=== PATIENT | female | born 1965 | race Caucasian/White ===

== ENCOUNTER 2019-11-06 10:01 | Inpatient (IN) | payer OTHER ==
[~2019-11-06] VITALS: Ht 170.2 cm; Wt 141.6 kg
--- NOTE | 2019-11-06 10:18 | NUR ---
PT BIB EMS FOR GENERALIZED WEAKNESS, NVD, ABD PAIN, AND SOB ON EXCERTION. PT HAS HX OF CANCER. DENIES URINARY SYMPTOM OR DARK STOOL. EKG COMPELTE. PT RESTING IN GURNEY CONNECTED TO MONITORING EQUIPMENT. BLANKET PROVIDED. PT RECEIVED 4MG ZOFRAN OTD RACKMAN
[2019-11-06] MEDS ORDERED: SODIUM CHLORIDE FLUSH 10ML SYR IVF ONE (10:30)
[2019-11-06] MEDS ORDERED: FAMOTIDINE 20 MG/2 ML IV ONE (10:30)
[2019-11-06] MEDS ORDERED: ONDANSETRON 2MG/ML, 2ML IVPush ONE (10:30)
[2019-11-06] MEDS ORDERED: FAMOTIDINE 20 MG/2 ML ONE (10:37)
[2019-11-06] MEDS ORDERED: ONDANSETRON 2MG/ML, 2ML ONE (10:37)
--- NOTE | 2019-11-06 10:48 | NUR ---
ASSISTED AMBULATION TO BATHROOM, URINE SAMPLE OBTAINED. MEDICATED ORDERED. PT RESTING IN BED.
[2019-11-06 10:51] LABS: BASOPHILS # (AUTO) 0.01 x10^3/uL (0-0.1); BASOPHILS % (AUTO) 0 % (0-1); EOSINOPHILS # (AUTO) 0.01 x10^3/uL (0-0.4); EOSINOPHILS % (AUTO) 0 % (1-7); LYMPHOCYTES # (AUTO) 0.33 x10^3/uL (1-3.4); LYMPHOCYTES % (AUTO) 4 % (22-44); MD NO; MEAN CORPUSCULAR HEMOGLOBIN 25.9 pg (27.0-34.8); MEAN CORPUSCULAR HGB CONC 31.6 g/dL (32.4-35.8); MEAN CORPUSCULAR VOLUME 81.9 fL (80-100); MEAN PLATELET VOLUME 7.3 fL (7.4-10.4); MONOCYTES # (AUTO) 0.26 x10^3/uL (0.2-0.8); MONOCYTES % (AUTO) 3 % (2-9); NEUTROPHILS # (AUTO) 8.35 x10^3/uL (1.8-6.8); NEUTROPHILS % (AUTO) 93 % (42-75); PLATELET COUNT 297 x10^3/uL (130-400); RED BLOOD COUNT 5.36 x10^6/uL (3.82-5.3); RED CELL DISTRIBUTION WIDTH 15.5 % (9.6-15.2)
[2019-11-06 11:01] LABS: ALANINE AMINOTRANSFERASE 40 U/L (12-78); ALBUMIN 3.1 g/dL (3.4-5.0); ANION GAP 5 mmol/L (5-15); CALCIUM 8.6 mg/dL (8.5-10.1); CHLORIDE 109 mmol/L (98-107); CREATININE 0.94 mg/dL (0.55-1.02)
[2019-11-06 11:01] LABS: MICROSCOPIC INDICATED
[2019-11-06 11:03] LABS: ALKALINE PHOSPHATASE 247 U/L (45-117); BILIRUBIN,TOTAL 0.7 mg/dL (0.2-1.0); TOTAL PROTEIN 7.1 g/dL (6.4-8.2)
[2019-11-06] MEDS ORDERED: SODIUM CHLORIDE 0.9% 1,000ML IVBOLUS ONE ×2 (11:30→13:00)
[2019-11-06] MEDS ORDERED: hydrALAzine 20 MG/ML, 1ML IVPush PRN (14:30)
[2019-11-06] MEDS ORDERED: ONDANSETRON ODT 4 MG PO PRN (14:30)
[2019-11-06] MEDS ORDERED: POLYETHYLENE GLYCOL 17 GM PACKET PO PRN (14:30)
[2019-11-06] MEDS: ENOXAPARIN 40 MG/0.4 ML SQ SCH (14:30)
[2019-11-06] MEDS ORDERED: SENNA/DOCUSATE TABLET PO PRN (14:30)
[2019-11-06 14:40] LABS: FREE T4 (FREE THYROXINE) 1.16 ng/dL (0.76-1.46)
[2019-11-06 15:46] VITALS: BP 145/95
[2019-11-06] MEDS: LACTATED RINGERS 1,000 ML IV SCH ×2 (15:54→21:35)
[2019-11-06] MEDS: HYDROmorphone 2 MG/ML, 1ML IVPush PRN ×3 (15:55→23:42)
[2019-11-06 18:44] VITALS: BP 123/68
[2019-11-06] MEDS: PROMETHAZINE 25 MG/ML, 1ML IM PRN (20:01)
[2019-11-07 00:02] VITALS: BP 156/87
[2019-11-07] MEDS: PROMETHAZINE 25 MG/ML, 1ML IM PRN ×2 (00:21→04:46)
[2019-11-07] MEDS: LACTATED RINGERS 1,000 ML IV SCH ×3 (04:27→21:51)
[2019-11-07] MEDS: HYDROmorphone 2 MG/ML, 1ML IVPush PRN ×5 (04:35→22:05)
[2019-11-07 06:20] LABS: BASOPHILS # (AUTO) 0.01 x10^3/uL (0-0.1); BASOPHILS % (AUTO) 0 % (0-1); EOSINOPHILS % (AUTO) 0 % (1-7); LYMPHOCYTES % (AUTO) 19 % (22-44); MD NO; MEAN CORPUSCULAR HEMOGLOBIN 26.1 pg (27.0-34.8); MEAN CORPUSCULAR VOLUME 81.5 fL (80-100); MONOCYTES # (AUTO) 0.33 x10^3/uL (0.2-0.8); MONOCYTES % (AUTO) 8 % (2-9); NEUTROPHILS # (AUTO) 3.09 x10^3/uL (1.8-6.8); NEUTROPHILS % (AUTO) 73 % (42-75); PLATELET COUNT 267 x10^3/uL (130-400); RED BLOOD COUNT 4.66 x10^6/uL (3.82-5.3); RED CELL DISTRIBUTION WIDTH 15.8 % (9.6-15.2)
[2019-11-07 06:29] LABS: CHLORIDE 109 mmol/L (98-107)
[2019-11-07 06:41] VITALS: BP 122/78
[2019-11-07 06:43] LABS: ALANINE AMINOTRANSFERASE 142 U/L (12-78); ALBUMIN 2.6 g/dL (3.4-5.0); ALKALINE PHOSPHATASE 345 U/L (45-117); ANION GAP 5 mmol/L (5-15); CALCIUM 8.4 mg/dL (8.5-10.1); CHOL/HDL RATIO 2.4; CHOLESTEROL, TOTAL 110 mg/dL (140-239); HDL CHOL % 42 % (28-40); HDL CHOLESTEROL (DIRECT) 46 mg/dL (40-60); LDL CHOLESTEROL,CALCULATED 47 mg/dL (54-169); TOTAL PROTEIN 6.4 g/dL (6.4-8.2); TRIGLYCERIDES 83 mg/dL (50-200); VLDL CHOLESTEROL 17 mg/dL (0-25)
[2019-11-07] MEDS: ONDANSETRON 2MG/ML, 2ML IVPush PRN ×2 (08:42→18:18)
[2019-11-07 13:00] VITALS: BP 105/66
[2019-11-07] MEDS: ENOXAPARIN 40 MG/0.4 ML SQ SCH (14:50)
[2019-11-07] MEDS: OXYcodone IR 5MG TABLET PO PRN ×2 (14:53→19:50)
[2019-11-07] MEDS: CEFTRIAXONE PMX 2GM/50ML 50 ML IV SCH (16:17)
[2019-11-07] MEDS: AZITHROMYCIN 500 MG in SODIUM CHLORIDE 0.9% 250 ML IV SCH (17:37)
[2019-11-07 19:28] VITALS: BP 121/74
[2019-11-07] MEDS ORDERED: HYDROmorphone 1 MG/ML, 1ML INJ ONE (22:03)
[2019-11-08] MEDS: OXYcodone IR 5MG TABLET PO PRN ×5 (00:53→22:40)
[2019-11-08 01:18] VITALS: BP 123/78
[2019-11-08] MEDS: LACTATED RINGERS 1,000 ML IV SCH ×2 (04:32→20:47)
[2019-11-08 05:28] LABS: CHLORIDE 107 mmol/L (98-107)
[2019-11-08 05:36] LABS: ALANINE AMINOTRANSFERASE 123 U/L (12-78); ALBUMIN 2.7 g/dL (3.4-5.0); ALKALINE PHOSPHATASE 374 U/L (45-117); ANION GAP 6 mmol/L (5-15); BILIRUBIN,TOTAL 0.4 mg/dL (0.2-1.0); CALCIUM 8.9 mg/dL (8.5-10.1); CREATININE 1.07 mg/dL (0.55-1.02); TOTAL PROTEIN 6.5 g/dL (6.4-8.2)
[2019-11-08] MEDS: HYDROmorphone 2 MG/ML, 1ML IVPush PRN ×4 (07:44→20:46)
[2019-11-08] MEDS: ONDANSETRON 2MG/ML, 2ML IVPush PRN ×2 (07:47→20:46)
[2019-11-08 08:40] VITALS: BP 115/67
[2019-11-08 13:12] VITALS: BP 128/66
[2019-11-08] MEDS: ENOXAPARIN 40 MG/0.4 ML SQ SCH (14:45)
[2019-11-08] MEDS: CEFTRIAXONE PMX 2GM/50ML 50 ML IV SCH (16:00)
[2019-11-08] MEDS: AZITHROMYCIN 500 MG in SODIUM CHLORIDE 0.9% 250 ML IV SCH (17:33)
[2019-11-08 18:42] VITALS: BP 149/88
[2019-11-09 00:22] VITALS: BP 124/83
[2019-11-09] MEDS: HYDROmorphone 2 MG/ML, 1ML IVPush PRN ×2 (01:07→08:51)
[2019-11-09] MEDS: LACTATED RINGERS 1,000 ML IV SCH ×2 (03:15→08:42)
[2019-11-09] MEDS ORDERED: ENOXAPARIN 30 MG/0.3 ML SQ SCH (06:00)
[2019-11-09] MEDS: OXYcodone IR 5MG TABLET PO PRN ×2 (06:02→12:56)
[2019-11-09 06:52] VITALS: BP 112/69
[2019-11-09] MEDS ORDERED: SENN1TAB94 PO (11:20)
[2019-11-09] MEDS ORDERED: CEFD300C37 PO (11:20)
[2019-11-09] MEDS ORDERED: AZIT500T PO (11:20)
[2019-11-09 12:21] VITALS: BP 134/77
== END 2019-11-09 14:35 | disposition home or self-care (01) | DRG 438 ==
LOC: ED 10:33 → EDIP 13:48 → 4NW 15:27 → 3N 11-08 19:45 → DCLOUNGE 11-09 14:23
PROVIDERS: ADMIT Internal Medicine; ATTEND Internal Medicine
PROC: 0T9B70Z Drainage of Bladder with Drainage Device, Via Natural or Artificial Opening (ICD-10-PCS; principal; 2019-11-06)
DX: K85.00 Idiopathic acute pancreatitis without necrosis or infection (principal); J18.9 Pneumonia, unspecified organism; J98.11 Atelectasis; Z68.42 Body mass index [BMI] 45.0-49.9, adult; F17.210 Nicotine dependence, cigarettes, uncomplicated; G89.29 Other chronic pain; K74.60 Unspecified cirrhosis of liver; K83.8 Other specified diseases of biliary tract; Z85.528 Personal history of other malignant neoplasm of kidney; Z85.72 Personal history of non-Hodgkin lymphomas; Z90.5 Acquired absence of kidney; Z98.84 Bariatric surgery status; E66.01 Morbid (severe) obesity due to excess calories; R74.8 Abnormal levels of other serum enzymes; Z88.5 Allergy status to narcotic agent; Z90.49 Acquired absence of other specified parts of digestive tract
CPT/HCPCS: 36415; J3490; 71045; 71046; 76700; 80053; 80061; 81001; 83036; 83690; 83735; 84439; 84443; 85025; 87040; 93005; G0378; J0456; J0696; J1170; J1650; J2405; J2550; J7030; J7050; J7120